=== PATIENT | female | born 1960 | race Caucasian/White ===

== ENCOUNTER 2019-03-12 00:40 | Outpatient (CLI) | payer OTHER, SELFPAY ==
--- NOTE | 2019-03-12 16:00 | DI.MAMMO_ITS ---
SYMPTOM/DIAGNOSIS: SCREENING, Z12.31 MAMMOGRAMS: Mammograms were interpreted according to the usual protocol including computer analysis with CAD system, tomosynthesis and C view imaging. Comparison is made with exams from 2011 and 2016. The breasts are composed of heterogeneously dense fibroglandular tissue, breast density, Category C. No suspicious masses or suspicious microcalcifications are seen. There has been no significant change. IMPRESSION: Category 1, negative mammogram. Yearly screening mammography is recommended. [facility] ASSESSMENT OF FINDINGS: Negative. Category 1. Patient will receive a letter notifying them of these results. Bi-RADS category C. The breasts are heterogeneously dense, which may obscure small masses.
== END 2019-03-12 01:00 ==
PROVIDERS: PCP Specialist/Technologist Athletic Trainer; Visit Provider Nurse Practitioner Family
DX: Z12.31 Encounter for screening mammogram for malignant neoplasm of breast (principal)
CPT/HCPCS: 77063; 77067

== ENCOUNTER 2020-07-30 08:20 | Outpatient (REF) | payer OTHER, SELFPAY ==
[2020-07-30 21:49] LABS: Calculated LDL 175 mg/dL (<100); Cholesterol 244 mg/dL (<200); Glucose 108 mg/dL (74-106); HDL Cholesterol 51 mg/dL (40-60); Triglyceride 93 mg/dL (<150)
== END 2020-07-30 08:40 ==
LOC: NCHCN 08:20
PROVIDERS: PCP Specialist/Technologist Athletic Trainer; Visit Provider Nurse Practitioner Family
DX: Z00.00 Encounter for general adult medical examination without abnormal findings (principal); F41.8 Other specified anxiety disorders; Z13.1 Encounter for screening for diabetes mellitus; Z13.220 Encounter for screening for lipoid disorders
CPT/HCPCS: 80061; 82947; 84443

== ENCOUNTER 2025-08-05 17:01 | Outpatient (REF) | payer MEDICARE, SELFPAY | END 2025-08-05 17:02 | disposition home or self-care (01) | LOC: NCHCN 17:01 | PROVIDERS: PCP Specialist/Technologist Athletic Trainer; Visit Provider Nurse Practitioner Family | DX: N30.01 Acute cystitis with hematuria (principal) | CPT/HCPCS: 87077; 87086; 87186 ==